=== PATIENT | male | born 1970 | race African-American/Black ===

== ENCOUNTER 2023-07-27 14:15 | Emergency (ER) | payer OTHER, SELFPAY ==
[2023-07-27 14:35] VITALS: BP 152/105; PULSE 90; RESP 16; TEMP 36.2; O2SAT 100
--- NOTE | 2023-07-27 16:03 | ED.GENADULT ---
HPI - General Adult General Chief complaint: Skin/Abscess/Foreign Body Stated complaint: Rash Source: patient Mode of arrival: ambulatory Limitations: no limitations History of Present Illness HPI narrative: Patient presents for evaluation of a pruritic rash to bilateral lower extremities and abdomen. Symptom onset about one week ago. No new lotions, soaps, detergents or topical products. 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 No family members have similar symptoms. No history of similar symptoms. He does use an electronic cigarette but has not changed the product he uses. Related Data Home Medications Medication Instructions Recorded Confirmed amlodipine 5 mg tablet 5 mg PO DAILY 07/27/23 07/27/23 Allergies Allergy/AdvReac Type Severity Reaction Status Date / Time Sulfa (Sulfonamide Allergy Unknown Anaphylactic Verified 07/27/23 14:37 Antibiotics) Shock Review of Systems Review of Systems: CONSTITUTIONAL: Denies fever, chills, or sweats. EYES: Denies visual changes, redness, or discharge. ENT: Denies rhinorrhea, congestion, sore throat, or otalgia. CARDIOVASCULAR: Denies chest pain, palpitations, or edema. RESPIRATORY: Denies cough or dyspnea. GASTROINTESTINAL: Denies abdominal pain, nausea, vomiting, or diarrhea. GENITOURINARY: Denies dysuria or hematuria. SKIN: Reports pruritic rash to BLE MUSCULOSKELETAL: Denies back pain, joint pain, or myalgia. NEUROLOGIC: Denies headache, numbness, dizziness, or weakness. PSYCHIATRIC: Denies anxiety or depression. [facility] Past Medical History Medical History No pertinent past medical history Surgical History Surgical History No pertinent past surgical history Family History Family History Father Hypertension Family history of heart disease in male family member before age 55 Sibling Family history of diabetes mellitus in first degree relative Mother Family history of lung cancer Family history of malignant neoplasm of breast in first degree relative Other Family history of arthritis Family history of malignant neoplasm Social History Social History Smoking status: Current every day smoker Tobacco type: e-cigarettes/vaping Second hand tobacco smoke exposure: Yes Smoking end date: 08/18/13 Alcohol intake: never Living arrangements: with family 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 HEAD: Normocephalic, atraumatic. EYES: PERRLA and EOMI. ENT: Nares clear, no rhinorrhea or epistaxis. Mucous membranes moist. Oropharynx without tonsillar hypertrophy exudate or other lesions. Bilateral TMs pearly acosta nonbulging NECK: Supple. No adenopathy or masses. No carotid bruits or JVD CHEST: Clear to auscultation. No respiratory distress. No wheezes rales or rhonchi HEART: Regular rate and rhythm. No murmur heard. Normal peripheral pulses. ABDOMEN: Soft, nontender, nondistended, normal active bowel sounds. EXTREMITIES: Normal range of motion. No edema. SKIN: there are erythematous macules noted in annular appearance to bilateral lower extremities, too numerous to count. NEURO: No focal deficits. Alert and oriented x3. PSYCH: Normal mood and affect. Course Course Emergency Course: This is a 53-year-old male who presented for evaluation of a pruritic rash to BLE. Etiology unclear. It appears this may be a folliculitis. Will treat with prednisone and cephalexin. Oatmeal baths and calamine lotion may help. Follow up w
[2023-07-27 17:21] VITALS: BP 154/99
== END 2023-07-27 16:05 | disposition home or self-care (01) ==
PROVIDERS: Emergency Provider Nurse Practitioner
DX: L30.9 Dermatitis, unspecified (principal); F17.290 Nicotine dependence, other tobacco product, uncomplicated
CPT/HCPCS: 99213; G0463